=== PATIENT | female | born 1960 | race Two or more races ===

== ENCOUNTER 2017-09-17 11:09 | Outpatient (CLI) | payer MEDICARE, OTHER | END 2017-09-17 23:59 | disposition home health service (06) | LOC: WOU 11:09 | PROVIDERS: ATTEND Surgery | DX: I96 Gangrene, not elsewhere classified (principal); S61.217S Laceration without foreign body of left little finger without damage to nail, sequela; W45.8XXS Other foreign body or object entering through skin, sequela; E11.52 Type 2 diabetes mellitus with diabetic peripheral angiopathy with gangrene; E11.65 Type 2 diabetes mellitus with hyperglycemia; Z79.4 Long term (current) use of insulin; E11.43 Type 2 diabetes mellitus with diabetic autonomic (poly)neuropathy; E11.22 Type 2 diabetes mellitus with diabetic chronic kidney disease; I12.0 Hypertensive chronic kidney disease with stage 5 chronic kidney disease or end stage renal disease; N18.6 End stage renal disease; Z99.2 Dependence on renal dialysis; E11.622 Type 2 diabetes mellitus with other skin ulcer; L97.319 Non-pressure chronic ulcer of right ankle with unspecified severity | CPT/HCPCS: A6209; A6402; G0463; J3490 ==

== ENCOUNTER 2017-09-21 11:00 | Outpatient (CLI) | payer MEDICARE, OTHER | END 2017-09-21 23:59 | disposition home health service (06) | LOC: WOU 11:00 | PROVIDERS: ATTEND Surgery | DX: I96 Gangrene, not elsewhere classified (principal); S61.217A Laceration without foreign body of left little finger without damage to nail, initial encounter; X58.XXXA Exposure to other specified factors, initial encounter; Y92.89 Other specified places as the place of occurrence of the external cause; E11.65 Type 2 diabetes mellitus with hyperglycemia; E11.43 Type 2 diabetes mellitus with diabetic autonomic (poly)neuropathy; Z79.4 Long term (current) use of insulin | CPT/HCPCS: A6402; G0463 ==

== ENCOUNTER 2017-09-24 13:32 | Outpatient (CLI) | payer MEDICARE, OTHER | END 2017-09-24 23:59 | disposition home or self-care (01) | LOC: WOU 13:32 | PROVIDERS: ATTEND Podiatrist Foot & Ankle Surgery | DX: M79.661 Pain in right lower leg (principal); E11.43 Type 2 diabetes mellitus with diabetic autonomic (poly)neuropathy; E11.51 Type 2 diabetes mellitus with diabetic peripheral angiopathy without gangrene; E11.65 Type 2 diabetes mellitus with hyperglycemia; Z79.4 Long term (current) use of insulin; Z79.899 Other long term (current) drug therapy | CPT/HCPCS: A6402; G0463 ==

== ENCOUNTER 2017-09-28 11:00 | Outpatient (CLI) | payer MEDICARE, OTHER | END 2017-09-28 23:59 | disposition home health service (06) | LOC: WOU 11:00 | PROVIDERS: ATTEND Surgery | DX: E11.52 Type 2 diabetes mellitus with diabetic peripheral angiopathy with gangrene (principal); E11.65 Type 2 diabetes mellitus with hyperglycemia; I96 Gangrene, not elsewhere classified; S61.217S Laceration without foreign body of left little finger without damage to nail, sequela; X58.XXXS Exposure to other specified factors, sequela; Z79.4 Long term (current) use of insulin; E11.43 Type 2 diabetes mellitus with diabetic autonomic (poly)neuropathy | CPT/HCPCS: A6402; G0463 ==

== ENCOUNTER → 2017-10-05 | Outpatient (CLI) | payer MEDICARE, OTHER | END | disposition home health service (06) | LOC: WOU 11:56 | PROVIDERS: ATTEND Surgery | DX: I96 Gangrene, not elsewhere classified (principal); E11.52 Type 2 diabetes mellitus with diabetic peripheral angiopathy with gangrene; S61.217D Laceration without foreign body of left little finger without damage to nail, subsequent encounter; Z79.4 Long term (current) use of insulin; E11.43 Type 2 diabetes mellitus with diabetic autonomic (poly)neuropathy; E11.65 Type 2 diabetes mellitus with hyperglycemia; X58.XXXD Exposure to other specified factors, subsequent encounter | CPT/HCPCS: A6402; G0463 ==

== ENCOUNTER 2017-10-12 12:11 | Outpatient (CLI) | payer MEDICARE, OTHER | END 2017-10-12 23:59 | disposition home or self-care (01) | LOC: WOU 12:11 | PROVIDERS: ATTEND Surgery | DX: I96 Gangrene, not elsewhere classified (principal); S61.217D Laceration without foreign body of left little finger without damage to nail, subsequent encounter; X58.XXXD Exposure to other specified factors, subsequent encounter; E11.43 Type 2 diabetes mellitus with diabetic autonomic (poly)neuropathy; E11.65 Type 2 diabetes mellitus with hyperglycemia; E11.29 Type 2 diabetes mellitus with other diabetic kidney complication; N28.9 Disorder of kidney and ureter, unspecified; Z79.4 Long term (current) use of insulin | CPT/HCPCS: A6402; G0463 ==

== ENCOUNTER 2017-10-19 12:00 | Outpatient (CLI) | payer MEDICARE, OTHER | END 2017-10-19 23:59 | disposition home health service (06) | LOC: WOU 12:00 | PROVIDERS: ATTEND Surgery | DX: I96 Gangrene, not elsewhere classified (principal); S61.217D Laceration without foreign body of left little finger without damage to nail, subsequent encounter; X58.XXXD Exposure to other specified factors, subsequent encounter; I10 Essential (primary) hypertension; E11.52 Type 2 diabetes mellitus with diabetic peripheral angiopathy with gangrene; E11.43 Type 2 diabetes mellitus with diabetic autonomic (poly)neuropathy; E11.65 Type 2 diabetes mellitus with hyperglycemia; Z79.4 Long term (current) use of insulin | CPT/HCPCS: A6402; G0463 ==

== ENCOUNTER 2017-10-26 11:31 | Outpatient (CLI) | payer MEDICARE, OTHER | END 2017-10-26 23:59 | disposition home or self-care (01) | LOC: WOU 11:31 | PROVIDERS: ATTEND Surgery | DX: I96 Gangrene, not elsewhere classified (principal); E11.52 Type 2 diabetes mellitus with diabetic peripheral angiopathy with gangrene; E11.65 Type 2 diabetes mellitus with hyperglycemia; Z79.4 Long term (current) use of insulin; E11.43 Type 2 diabetes mellitus with diabetic autonomic (poly)neuropathy; E11.21 Type 2 diabetes mellitus with diabetic nephropathy; Z99.2 Dependence on renal dialysis | CPT/HCPCS: A6402; G0463 ==

== ENCOUNTER 2017-10-27 10:45 | Outpatient (CLI) | payer MEDICARE, OTHER | END 2017-10-27 23:59 | disposition home or self-care (01) | LOC: WOU 10:45 | PROVIDERS: ATTEND Surgery Vascular Surgery | DX: I96 Gangrene, not elsewhere classified (principal); T82.898A Other specified complication of vascular prosthetic devices, implants and grafts, initial encounter; Y82.8 Other medical devices associated with adverse incidents; Y92.89 Other specified places as the place of occurrence of the external cause | CPT/HCPCS: 93930-TC; 93931-TC; A6402; G0463 ==

== ENCOUNTER 2017-10-27 12:33 | Outpatient (CLI) | payer MEDICARE, OTHER | END 2017-10-27 23:59 | disposition home or self-care (01) | LOC: VASLAB 12:33 | PROVIDERS: ATTEND Surgery Vascular Surgery | DX: I96 Gangrene, not elsewhere classified (principal); T82.898A Other specified complication of vascular prosthetic devices, implants and grafts, initial encounter; Y82.8 Other medical devices associated with adverse incidents; Y92.89 Other specified places as the place of occurrence of the external cause | CPT/HCPCS: 82962; A6402; G0463 ==

== ENCOUNTER 2017-11-11 11:34 | Inpatient (IN) | payer MEDICARE, OTHER ==
[2017-11-11] VITALS (11 sets, daily range): BP systolic 130–170; BP diastolic 64–89
[~2017-11-11] VITALS: Ht 149.9 cm; Wt 58.1 kg
--- NOTE | 2017-11-11 12:30 | NUR ---
RN NOTES PATIENT RECEIVED FROM ADMITTING DEPT, AMBULATORY AWAKE ALERT AND VERBALLY RESPONSIVE ABLE TO MAKE NEEDS KNOWN, PT OF DR. TINAJERO'S TO HAVE SURGICAL PROCEDURE, WILL ASSIST WITH PREOP ORDERS AND PROCESS. ADMITTING RETAIL BANKER, JAVIER MADE AWARE PT IS ON UNIT WILL CONTINUE TO MONITOR AND CARRY OUT ADMITTING ORDERS. PT WITH PICTURES OF SKIN TAKEN AND PLACED IN CHART, WILL OBTAIN MRSA SWAB AND INSERT IV. PT ORIENTED TO ROOM AND USE OF CALL LIGHT, KEPT CLEAN DRY AND COMFORTABLE CALL LIGHT WITHIN EASY REACH
--- NOTE | 2017-11-11 13:00 | NUR ---
RN NOTES DR. TINAJERO MADE AWARE PT IS ON UNIT, OBTAINED PRE OP ORDERS, IV INSERTED 20G TO RIGHT WRIST X1 ATTEMPT TOLERATED WELL, NOTED WITH POSITIVE FLASH BACK OF BLOOD, WILL CONTINUE TO MONITOR
--- NOTE | 2017-11-11 13:30 | NUR ---
RN NOTES MED RECON NURSE NOTIFIED OF NEED OF MED LIST TO BE OBTAINED, PER PT WANTS TO HAVE SURGERY DONE FIRST AND REST AT THIS TIME WILL CONTINUE TO ASSIST WITH OBTAINING HOME MED LIST
[2017-11-11 14:03] LABS: BASOPHILS % (AUTO) 0.5 % (0.0-2.0); EOSINOPHILS # (AUTO) 0.2 /CMM (0.0-0.7); EOSINOPHILS % (AUTO) 2.7 % (0.0-6.0); HEMATOCRIT 43 % (33-45); HEMOGLOBIN 14.4 g/dL (11.5-14.8); LYMPHOCYTES # (AUTO) 1.5 /CMM (0.8-4.8); LYMPHOCYTES % (AUTO) 21.1 % (20.0-44.0); MEAN CORPUSCULAR HEMOGLOBIN 33 PG (26.0-33.0); MEAN CORPUSCULAR HGB CONC 33 g/dl (31.0-36.0); MEAN CORPUSCULAR VOLUME 100 fL (82-100); MONOCYTES # (AUTO) 0.5 /CMM (0.1-1.30); MONOCYTES % (AUTO) 7.4 % (2.0-12.0); NEUTROPHILS # (AUTO) 4.7 /CMM (1.8-8.9); NEUTROPHILS % (AUTO) 68.3 % (43.0-81.0); PLATELET COUNT (AUTO) 204 /CMM (150-450); RED BLOOD CELL COUNT(AUTO) 4.36 MIL/uL (4.0-5.2); WHITE BLOOD COUNT (AUTO) 6.9 K/uL (4.3-11.0)
[2017-11-11 14:21] LABS: INR 0.95 (0.87-1.13)
[2017-11-11 14:41] LABS: CALCIUM, SERUM 8.2 mg/dL (8.5-10.1); POTASSIUM 5.2 mmol/L (3.5-5.1)
[2017-11-11 14:43] LABS: CREATININE 8.9 mg/dL (0.6-1.3)
--- NOTE | 2017-11-11 15:45 | NUR ---
RN NOTES PT TAKEN TO OR IN STABLE CONDITION WILL CONTINUE TO MONITOR UPON RETURN TO UNIT
--- NOTE | 2017-11-11 16:30 | NUR ---
RN NOTES MED RECON NURSE NOTIFIED OF NEED OF MED LIST TO BE OBTAINED, PT NOW IN OR, WILL REATTEMPT UPON RETURN TO UNIT
--- NOTE | 2017-11-11 17:00 | NUR ---
RN NOTES REMINDED RESIDUE FURNACE OPERATOR JAVIER PT IS NEW ADMIT AND WILL NEED ADMIT ORDERS, WILL CONTINUE TO MONITOR UPON RETURN FROM OR
[2017-11-11] MEDS ORDERED: ANESTHESIA TRAY IN PYXIS 1 EA TRAY MC ONE (17:07)
[2017-11-11] MEDS ORDERED: HEPARIN SODIUM,PORCINE 1000 UNIT/1ML MDV VIAL IV ONE (17:11)
[2017-11-11] MEDS ORDERED: LIDOCAINE 1% INJ 50 ML MDV IJ ONE (17:24)
--- NOTE | 2017-11-11 18:00 | NUR ---
NEREYDA NOTES PT CONTINUES TO BE IN OR, WILL CONTINUE TO MONITOR UPON RETURN TO UNIT Addendum: 11/11/17 at 1811 by DOMONIQUE WHYTE RN Amended: Links added.
[2017-11-11] MEDS ORDERED: CELLULOSE,OXIDIZED 1 EA PACK MC ONE (18:52)
--- NOTE | 2017-11-11 18:53 | NUR ---
RN NOTES PT CONTINUES IN OR, WILL GIVE REPORT TO ONCOMING RN FOR CONTINUITY OF CARE
[2017-11-11] MEDS ORDERED: FENTANYL PF 100MCG/2ML AMPUL ONE (19:18)
[2017-11-11] MEDS ORDERED: HYDROMORPHONE INJ 2 MG/ML DISP.SYRIN ONE (19:37)
--- NOTE | 2017-11-11 20:00 | NUR ---
MS RN NOTES RECEIVED PT FROM OR, REPORT RECEIVED FROM NEREYDA OLIVEROS. PT IS IN BED, RESTING COMFORTABLY. AROUSES EASILY, A/O X 4. VERBALLY RESPONSIVE. NO DISTRESS, NOR SOB NOTED. RESPIRATION IS EVEN AND UNLABORED. IV SITE ON RIGHT WRIST INTACT AND PATENT, NO S/S OF INFILTRATION NOTED. RCW PERMACATH WITH CLEAN AND INTACT DRESSING. NO BLEEDING NOTED AT THIS TIME. NO C/O PAIN OR DISCOMFORT AT THIS TIME. ALL NEEDS ATTENDED AND MET. KEPT COMFORTABLE. CALL LIGHT WITHIN REACH. WILL CONTINUE TO MONITOR.
--- NOTE | 2017-11-11 20:01 | NUR ---
DRESSING ON RIGHT NECK, INTACT, CLEAN AND DRY . NO BLEEDING NOTED. WILL CONT TO MONITOR.
--- NOTE | 2017-11-11 20:15 | NUR ---
SPOKE WITH SHARI HERRERA REGARDING PT'S ADMISSION , PER JAVIER, HE WASN'T INFORMED REGARDING THIS PT. GRETEL CHARGE NURSE INFORMED AND WILL CALL [facility] INVENTORY CONTROL CLERK
[2017-11-11] MEDS ORDERED: DEXTROSE 50%-WATER 50 ML DISP.SYRIN IV PRN (20:30)
--- NOTE | 2017-11-11 20:30 | NUR ---
PT UNABLE TO RECALL THE MEDICATIONS THAT SHE'S TAKING AT HOME, PER PT TO CALL HER DAUGHTER NOEMY,
--- NOTE | 2017-11-11 20:32 | NUR ---
PLACED A CALL TO NICKIE SALGUERO ABLE TO GIVE SOME OF THE PT'S MEDICATIONS BUT ACCDG TO HER TO VERIFY IT WITH [phone] [facility] JUST TO BE SURE. PHARMACY CLOSES AT 6PM. WILL ENDORSE TO AM SHIFT ACCORDINGLY.
--- NOTE | 2017-11-11 20:45 | NUR ---
PLACED A CALL TO DR. VILLALPANDO, REGARDING ADMISSION ORDERS, PER DR. VILLALPANDO, THEY JUST HAVE THE PT FOR CONSULT AND TO CALL THE HOSPITALIST.
--- NOTE | 2017-11-11 20:45 | NUR ---
DR VILLALPANDO AWARE OF THE [facility]PH[facility] CONSULT.
[2017-11-11 21:06] LABS: CALCIUM, SERUM 7.8 mg/dL (8.5-10.1); POTASSIUM 5.7 mmol/L (3.5-5.1)
[2017-11-11 21:52] LABS: BASOPHILS % (AUTO) 0.4 % (0.0-2.0); EOSINOPHILS # (AUTO) 0.2 /CMM (0.0-0.7); EOSINOPHILS % (AUTO) 3.9 % (0.0-6.0); HEMATOCRIT 41 % (33-45); HEMOGLOBIN 13.9 g/dL (11.5-14.8); LYMPHOCYTES # (AUTO) 1.7 /CMM (0.8-4.8); LYMPHOCYTES % (AUTO) 28.1 % (20.0-44.0); MEAN CORPUSCULAR HEMOGLOBIN 34 PG (26.0-33.0); MEAN CORPUSCULAR HGB CONC 34 g/dl (31.0-36.0); MEAN CORPUSCULAR VOLUME 100 fL (82-100); MONOCYTES # (AUTO) 0.4 /CMM (0.1-1.30); NEUTROPHILS # (AUTO) 3.7 /CMM (1.8-8.9); NEUTROPHILS % (AUTO) 60.6 % (43.0-81.0); PLATELET COUNT (AUTO) 177 /CMM (150-450); RED BLOOD CELL COUNT(AUTO) 4.11 MIL/uL (4.0-5.2); WHITE BLOOD COUNT (AUTO) 6.1 K/uL (4.3-11.0)
[2017-11-11] MEDS: BLOOD SUGAR DIAGNOSTIC 1 EACH STRIP IN SCH (21:59)
[2017-11-11] MEDS: INSULIN REGULAR, HUMAN 100 UNIT/ML 3 ML VIAL SQ PRN (22:01)
[2017-11-11] MEDS ORDERED: AMLO5TAB4 PO (22:13)
[2017-11-11] MEDS ORDERED: RITO100T PO (22:13)
[2017-11-11] MEDS ORDERED: RALT400T PO (22:13)
[2017-11-11] MEDS ORDERED: DARU800T2 PO (22:13)
[2017-11-11] MEDS ORDERED: ABAC300T PO (22:13)
[2017-11-11] MEDS ORDERED: [UNRECOGNIZED DRUG - CODE] PO (22:13)
--- NOTE | 2017-11-11 22:24 | NUR ---
SPOKE WITH DR. VALDES REGARDING ADMISSION ORDERS , PER DR. VALDES HE'LL TAKE CARE OF IT, ALSO MENTIONED THAT MED RECON IS DONE, AND IT IS NEED TO BE REVIEWED, ALSO RELAYED PT'S REQUEST FOR A TYLENOL ORDER, WITH N.O NOTED AND CARRIED OUT. AWAITING FOR ADMISSION ORDERS.
[2017-11-11] MEDS ORDERED: MAGNESIUM HYDROXIDE 30 ML UDC PO PRN (22:30)
[2017-11-11] MEDS ORDERED: ONDANSETRON HCL/PF 4 MG/2 ML VIAL IVP PRN (22:30)
[2017-11-11] MEDS ORDERED: ZOLPIDEM TARTRATE 5 MG TABLET PO PRN (22:30)
[2017-11-11] MEDS ORDERED: HYDROCODONE/APAP 5/325MG 1 EACH TABLET PO PRN (22:30)
[2017-11-11] MEDS ORDERED: ACETAMINOPHEN 325 MG TABLET PO PRN ×2 (22:30)
[2017-11-11] MEDS ORDERED: ABACAVIR SULFATE 300 MG TABLET PO SCH (22:30)
[2017-11-11] MEDS ORDERED: MAG HYDROX/AL HYDROX/SIMETH 30 ML UDC PO PRN (22:30)
[2017-11-11] MEDS ORDERED: Z GUARD REMEDY 2 OZ OINT TP PRN (22:30)
[2017-11-11] MEDS ORDERED: ABACAVIR SULFATE 300 MG TABLET PO ONE (23:51)
--- NOTE | 2017-11-12 00:18 | NUR ---
PER PT TAKES ZIAGEN EVERYDAY AND SHE DIDN'T TAKE IT YET FOR TODAY,REQUESTED TO TAKER IT NOW, AWARE. NURSING IMPORT EXPORT CLERK LYNETTE OVER RIDE THE MEDICATION.
[2017-11-12] MEDS: CEFAZOLIN SODIUM 1 GM in IV SODIUM CHLORIDE 0.9% 50 ML IV SCH ×2 (00:25→08:17)
--- NOTE | 2017-11-12 02:01 | NUR ---
PT COMPLAINING OF ITCHINESS, REQUESTING FOR BENADRYL . PLACED A CALL TO DR. VALDES , RELAYED PT'S REQUEST , WITH N.O NOTED AND CARRIED OUT.
[2017-11-12] MEDS: diphenhydrAMINE HCL 25 MG CAPSULE PO PRN ×2 (06:05→23:08)
[2017-11-12] MEDS: BLOOD SUGAR DIAGNOSTIC 1 EACH STRIP IN SCH ×4 (06:11→22:32)
[2017-11-12] MEDS: INSULIN REGULAR, HUMAN 100 UNIT/ML 3 ML VIAL SQ PRN ×4 (06:13→21:59)
--- NOTE | 2017-11-12 06:40 | NUR ---
MS RN NOTES PT IS IN BED, RESTING COMFORTABLY. AROUSES EASILY, A/O X 4. VERBALLY RESPONSIVE. NO DISTRESS, NOR SOB NOTED. RESPIRATION IS EVEN AND UNLABORED. IV SITE ON RIGHT WRIST INTACT AND PATENT, NO S/S OF INFILTRATION NOTED. RCW DIALYSIS CATH AND RIGHT NECK DRESSING CLEAN AND INTACT DRESSING. NO BLEEDING NOTED AT THIS TIME. NO C/O PAIN OR DISCOMFORT AT THIS TIME. NO S/S OF HYPO/ HYPERGLYCEMIA NOTED. ALL NEEDS ATTENDED AND MET. KEPT COMFORTABLE. CALL LIGHT WITHIN REACH. WILL ENDORSE TO NEXT SHIFT FOR LALO.
[2017-11-12 06:45] LABS: BASOPHILS % (AUTO) 0.3 % (0.0-2.0); EOSINOPHILS # (AUTO) 0.3 /CMM (0.0-0.7); EOSINOPHILS % (AUTO) 3.8 % (0.0-6.0); HEMATOCRIT 41 % (33-45); HEMOGLOBIN 13.6 g/dL (11.5-14.8); LYMPHOCYTES # (AUTO) 1.2 /CMM (0.8-4.8); LYMPHOCYTES % (AUTO) 16.1 % (20.0-44.0); MEAN CORPUSCULAR HEMOGLOBIN 33 PG (26.0-33.0); MEAN CORPUSCULAR HGB CONC 34 g/dl (31.0-36.0); MEAN CORPUSCULAR VOLUME 100 fL (82-100); MONOCYTES # (AUTO) 0.5 /CMM (0.1-1.30); MONOCYTES % (AUTO) 6.6 % (2.0-12.0); NEUTROPHILS # (AUTO) 5.5 /CMM (1.8-8.9); NEUTROPHILS % (AUTO) 73.2 % (43.0-81.0); PLATELET COUNT (AUTO) 199 /CMM (150-450); RDW COEFFICIENT OF VARIATION 14.2 (11.5-15.0); RED BLOOD CELL COUNT(AUTO) 4.08 MIL/uL (4.0-5.2); WHITE BLOOD COUNT (AUTO) 7.5 K/uL (4.3-11.0)
[2017-11-12 07:13] LABS: CALCIUM, SERUM 8.3 mg/dL (8.5-10.1); PHOSPHORUS 7.2 mg/dL (2.5-4.9); POTASSIUM 5.2 mmol/L (3.5-5.1)
[2017-11-12 07:18] LABS: CREATININE 9.6 mg/dL (0.6-1.3)
--- NOTE | 2017-11-12 07:30 | NUR ---
MS/RN Patient received Patient received from student life advisor. Dressings remain dry and intact, no oozing observed. Stating that pain scale is currently 10/10, will give medication as ordered. Bed in low setting, side rails X3 in upright position. Call light within reach, will continue to monitor and ensure safety.
[2017-11-12 08:00] VITALS: BP 156/73
[2017-11-12] MEDS: HYDROCODONE/APAP 5/325MG 1 EACH TABLET PO PRN ×2 (08:16→14:44)
--- NOTE | 2017-11-12 08:20 | NUR ---
MS/RN Pain Jefferson (5/325mg)one tablet administered for pain scale 10/10. Will monitor effectiveness.
[2017-11-12] MEDS: RITONAVIR 100 MG CAPSULE PO SCH ×2 (08:30→09:00)
[2017-11-12] MEDS: RALTEGRAVIR POTASSIUM 400 MG TABLET PO SCH ×3 (09:00→17:30)
[2017-11-12] MEDS: LANTHANUM CARBONATE 1,000 MG TAB.CHEW PO SCH ×3 (09:00→17:30)
--- NOTE | 2017-11-12 09:03 | NUR ---
MS/RN Telephone orders Call received from Dr Carr - patient may be discharged to home today after HDX, needs to make follow up appointment for the office for two weeks.
--- NOTE | 2017-11-12 09:20 | NUR ---
MS/RN Refused medications Refused morning medications, stated that she would take it after HDX.
--- NOTE | 2017-11-12 12:00 | NUR ---
MS/RN Blood sugar Blood sugar at noon 200, three units regular insulin administered as per sliding scale.
--- NOTE | 2017-11-12 13:05 | NUR ---
MS/RN S/B Dr Jackson Seen by Dr Manuel acosta for patient to be discharged to home following HDX this afternoon.
[2017-11-12 16:00] VITALS: BP 177/80
--- NOTE | 2017-11-12 16:30 | NUR ---
MS/RN HDX HDX started at bedside.
--- NOTE | 2017-11-12 18:30 | NUR ---
MS/RN S/B Killian Elam BUILDINGS AND GROUNDS DIRECTOR Seen by BUILDINGS AND GROUNDS DIRECTOR - to remain in hospital overnight as dialysis not yet completed, patient in agreement. Will be discharged first thing tomorrow morning.
--- NOTE | 2017-11-12 18:43 | NUR ---
MS/RN End note HDX completed, 2.2l removed, blood pressure remained stable throughout. All needs addressed, will endorse to manager shift.
[2017-11-12 20:00] VITALS: BP 142/76
[2017-11-12] MEDS ORDERED: AMLODIPINE BESYLATE 5 MG TABLET PO SCH (22:00)
--- NOTE | 2017-11-12 23:35 | NUR ---
RN NOTES DR. VALDES IN UNIT TO SEE PATIENT. MD MADE AWARE OF BS 425 ONE HOUR AFTER GIVING 10 UNITS OF INSULIN FOR INITIAL BLOOD SUGAR OF 432. DR. VALDES ORDERED 15 UNITS OF REGULAR INSULIN SQ, NOTED AND CARRIED OUT.
[2017-11-13] MEDS ORDERED: INSULIN REGULAR, HUMAN 100 UNIT/ML 3 ML VIAL SQ ONE
--- NOTE | 2017-11-13 06:00 | NUR ---
RN NOTES PATIENT ASLEEP, EASILY AROUSABLE. RESPIRATIONS EVEN. NO SIGNS OF PAIN NOTED. DUE MEDS GIVEN WITH NO ASE NOTED. NEEDS ATTENDED. SAFETY PRECAUTIONS AND COMFORT MEASURES IN PLACE. WILL GIVE REPORT TO DAY SHIFT FOR CONTINUITY OF CARE.
--- NOTE | 2017-11-13 06:15 | NUR ---
BS : 58 AT THIS TIME, PT REMAINS A/O X 3, VERBALLY RESPONSIVE. NO S/S OF HYPOGLYCEMIA NOTED. OJ GIVEN WILL RECHECK AND CONT TO MONITOR.
[2017-11-13] MEDS: BLOOD SUGAR DIAGNOSTIC 1 EACH STRIP IN SCH ×2 (07:14→12:16)
[2017-11-13 08:00] VITALS: BP 162/78
--- NOTE | 2017-11-13 08:00 | NUR ---
RN AM NOTES RECEIVED PATIENT IN BED AWAKE, AO X 3, ABLE TO MAKE NEEDS KNOWN. NO ACUTE DISTRESS NOTED. DENIES ANY PAIN AT THIS TIME. IV SITE PATENT, INTACT; FLUSHED. RIGHT INTERNAL JUGULAR HD CATH INTACT WITH DRESSING INTACT. LIGATED NIKKI AV FISTULA DRESSING INTACT. SAFETY REMINDERS GIVEN. ON LOW BED WITH BILATERAL UPPER SIDE RAILS UP. CALL GUAJARDO WITHIN EASY REACH. WILL CONTINUE TO MONITOR.
[2017-11-13] MEDS: RITONAVIR 100 MG CAPSULE PO SCH (08:42)
[2017-11-13] MEDS: LANTHANUM CARBONATE 1,000 MG TAB.CHEW PO SCH ×2 (08:42→13:36)
[2017-11-13] MEDS: RALTEGRAVIR POTASSIUM 400 MG TABLET PO SCH ×3 (08:42→13:35)
--- NOTE | 2017-11-13 10:27 | NUR ---
WOUND CARE CONSULT WOUND CARE RECEIVED CONSULT FOR LEFT PINKY GRANGRENE. WOUND CARE WILL DEFER CONSULT AND ALL TREATMENT PLANS TO SURGICAL TEAM WHO ARE CURRENTLY FOLLOWING. BOTH VASCULAR SURGERY AND PLASTIC SURGERY HAVE DONE CONSULTS. PATIENT WITH RAYMOND AT 20.
--- NOTE | 2017-11-13 12:11 | NUR ---
BLOOD SUGAR IS 461.NOTIFIED JAVIER AND GAVE HUMULIN 10 UNITS SQ WITH MEALS
[2017-11-13] MEDS: INSULIN REGULAR, HUMAN 100 UNIT/ML 3 ML VIAL SQ PRN (12:17)
--- NOTE | 2017-11-13 15:00 | NUR ---
PT WAS IN A TAM TO GO HOME WITH THE CAREGIVER AND REFUSED TO HAVE HER WOUND PHOTOS TO BE TAKEN.
--- NOTE | 2017-11-13 15:00 | NUR ---
DISCHARGED PT HOME WITH [facility] WITH STABLE V/S.IV H/L REMOVED TO RT WRIST WITH NO BLEEDING NOTED.ACCOMPANIED BY CAREGIVER.DENIES ANY PAIN OR DISTRESS.
== END 2017-11-13 15:00 | disposition home health service (06) | DRG 252 ==
LOC: DS 11:34 → MEDSG2 11:39
PROVIDERS: ADMIT Surgery Vascular Surgery; ATTEND Surgery Vascular Surgery
PROC: 057 Upper Veins, Dilation (ICD-10-PCS; 2017-11-11)
PROC: 05HM33Z Insertion of Infusion Device into Right Internal Jugular Vein, Percutaneous Approach (ICD-10-PCS; 2017-11-11)
PROC: B513YZA Fluoroscopy of Right Jugular Veins using Other Contrast, Guidance (ICD-10-PCS; 2017-11-11)
PROC: 03L80ZZ Occlusion of Left Brachial Artery, Open Approach (ICD-10-PCS; principal; 2017-11-11 17:20)
PROC: 5A1D70Z Performance of Urinary Filtration, Intermittent, Less than 6 Hours Per Day (ICD-10-PCS; 2017-11-12)
DX: T82.898A Other specified complication of vascular prosthetic devices, implants and grafts, initial encounter (principal); N18.6 End stage renal disease; I96 Gangrene, not elsewhere classified; I12.0 Hypertensive chronic kidney disease with stage 5 chronic kidney disease or end stage renal disease; E11.22 Type 2 diabetes mellitus with diabetic chronic kidney disease; E83.9 Disorder of mineral metabolism, unspecified; E11.52 Type 2 diabetes mellitus with diabetic peripheral angiopathy with gangrene; Z99.2 Dependence on renal dialysis; Y83.8 Other surgical procedures as the cause of abnormal reaction of the patient, or of later complication, without mention of misadventure at the time of the procedure; Y92.009 Unspecified place in unspecified non-institutional (private) residence as the place of occurrence of the external cause; D64.9 Anemia, unspecified; Z79.84 Long term (current) use of oral hypoglycemic drugs; E78.5 Hyperlipidemia, unspecified
CPT/HCPCS: 36415; 71045-TC; 80048-TC; 82945-TC; 82962-TC; 83735-TC; 84100-TC; 85025-TC; 85610-TC; 86850-TC; 87081-TC; 90935-TC; A4216; A4565; A6402; C1750; C1769; C1894; J0690; J1170; J1644; J1815; J2704; J3010; J3490; Q0163; Z7610

== ENCOUNTER 2017-11-16 10:30 | Outpatient (CLI) | payer MEDICARE, OTHER ==
[~2017-11-16 10:30] MED LIST: ABAC300T PO; AMLO5TAB4 PO; DARU800T2 PO; GELATIN SPONGE,ABSORBABLE 1 EA SPONGE TP ONE; RALT400T PO; RITO100T PO; THROMBIN (BOVINE) 5,000 UNITS VIAL TP ONE; [UNRECOGNIZED DRUG - CODE] PO
== END 2017-11-16 23:59 | disposition home health service (06) ==
LOC: WOU 10:30
PROVIDERS: ATTEND Surgery
DX: I96 Gangrene, not elsewhere classified (principal); E11.52 Type 2 diabetes mellitus with diabetic peripheral angiopathy with gangrene; E11.43 Type 2 diabetes mellitus with diabetic autonomic (poly)neuropathy; T82.898D Other specified complication of vascular prosthetic devices, implants and grafts, subsequent encounter; E11.65 Type 2 diabetes mellitus with hyperglycemia; E11.22 Type 2 diabetes mellitus with diabetic chronic kidney disease; I12.0 Hypertensive chronic kidney disease with stage 5 chronic kidney disease or end stage renal disease; N18.6 End stage renal disease; Z99.2 Dependence on renal dialysis; Z79.4 Long term (current) use of insulin
CPT/HCPCS: A6402; G0463